=== PATIENT | female | born 1955 | race Caucasian/White ===

== ENCOUNTER 2016-07-19 06:28 | Day surgery (SDC) ==
[2016-07-19] MEDS ORDERED: NS 1,000 ML ONE (06:56)
[2016-07-19] MEDS ORDERED: MYLICON DROPS (DOSE) MISC ONE (09:42)
[2016-07-19] MEDS ORDERED: DIPRIVAN 1% ONE (10:06)
[2016-07-19] MEDS ORDERED: FENTANYL ONE (10:06)
[2016-07-19 10:24] VITALS: BP 158/80
[2016-07-19] MEDS ORDERED: XYLOCAINE-MPF 2% ONE (15:33)
--- NOTE | 2016-07-25 03:44 | OPERATIVE NOTE ---
PROCEDURE DATE: 07/19/2016 REFERRING PHYSICIAN: Eduarda Echeverria MD. INDICATION FOR PROCEDURE: 1. Screen for esophageal varices. 2. New onset cirrhosis. CONSENT: Informed consent was obtained from the patient prior to the procedure. The risks, benefits, and alternatives were discussed. MEDICATION: The patient received monitored anesthesia care. PROCEDURE PERFORMED: Esophagogastroduodenoscopy. PERFORMING PHYSICIAN: Jocelin Wharton MD. ASSISTANTS: 1. [facility] 2. Bianca Mauro RN. 3. Radhika Youngblood CRNA. 4. Steven Taylor MD (anesthesia). COMPLICATIONS: There were no complications. ESTIMATED BLOOD LOSS: None. SPECIMENS REMOVED: None. FINDINGS: After sedation was achieved, the upper endoscope was inserted to the 2nd portion of the duodenum. The hypopharynx appeared normal. The tubular esophagus was normal. There was no evidence of esophageal varices, Coley's esophagus, or a Schatzki's ring. The GE junction was present at 40 cm from the incisors. In the gastric lumen, there was nonerosive gastritis in the antrum and the body. On retroflexed view, the fundus appeared normal. The pylorus was widely patent. The 1st and 2nd portions of the duodenum appeared endoscopically normal. IMPRESSION: 1. Nonerosive gastritis. 2. No evidence of esophageal varices or portal gastropathy. RECOMMENDATION: 1. Resume Protonix. 2. Resume Reglan. 3. Begin a low carbohydrate calorie restricted diet to promote additional weight loss. 4. She will need a repeat EGD in 2-3 years to screen for esophageal varices. 5. We will have the patient return to clinic in 6 months as she would like to work on her own regarding weight reduction. She has agreed to call if she begins to struggle.
== END 2016-07-19 10:33 | disposition home or self-care (01) ==
LOC: ENDO 06:28
PROVIDERS: ATTEND Internal Medicine Gastroenterology
DX: K29.70 Gastritis, unspecified, without bleeding (principal); K74.60 Unspecified cirrhosis of liver; E11.9 Type 2 diabetes mellitus without complications; E66.01 Morbid (severe) obesity due to excess calories; K76.0 Fatty (change of) liver, not elsewhere classified
CPT/HCPCS: 82948; J3010; J7030